=== PATIENT | male | born 1995 | race Caucasian/White ===

== ENCOUNTER 2022-06-29 19:28 | Emergency (ER) | payer MEDICAID, OTHER ==
[2022-06-29] MEDS ORDERED: Sodium Chloride 0.9% 10 ML Syringe FLUSH PRN (19:34)
[2022-06-29] MEDS ORDERED: Ketorolac 30 MG/ML SDV IVPUSH ONE (19:50)
[2022-06-29 20:15] LABS: ANION GAP 16.1 mmol/L (5-15); CHLORIDE,CL 106 mmol/L (98-107); SODIUM,NA 143 mmol/L (136-145)
[2022-06-29 20:19] LABS: ESTIMATED GFR 135 mL/min (>=60)
[2022-06-29] MEDS ORDERED: Ketorolac 10 MG Tab PO PRN (20:44)
[2022-06-29] MEDS ORDERED: Potassium Chloride 20 MEQ Tab.ER PO ONE (20:45)
== END 2022-06-29 21:02 | disposition home or self-care (01) ==
LOC: KA.ED 19:28
DX: R07.89 Other chest pain (principal); B33.0 Epidemic myalgia; E87.6 Hypokalemia; I10 Essential (primary) hypertension; F17.210 Nicotine dependence, cigarettes, uncomplicated
CPT/HCPCS: 36415; 71046; 80053; 84484; 85025; 85379; 86140; 93005; 96374; 99285; A9270; J1885; 93010